=== PATIENT | female | born 1940 | race Caucasian/White ===

== ENCOUNTER 2016-11-17 15:01 | Emergency (ER) | payer MEDICARE, BC ==
--- NOTE | 2016-11-17 15:47 | UC ---
Complaint Female HPI - HPI Summary HPI Summary: 76 YEAR OLD FEMALE PRESENTS WITH COMPLAINS OF URINARY FREQUENCY,URGENCY AND BURNING. - History Of Current Complaint Stated Complaint: URINARY Time Seen by Provider: 11/17/16 15:46 Onset/Duration: Sudden Onset Timing: Constant Severity Initially: Moderate Severity Currently: Moderate Pain Scale Used: 0-10 Numeric - 7 - Allergies/Home Medications Allergies/Adverse Reactions: Allergies Allergy/AdvReac Type Severity Reaction Status Date / Time Penicillins Allergy Intermediate Hives Verified 11/17/16 15:56 environmental Allergy Eyes Uncoded 11/17/16 15:56 Itchy/Swollen/Red/Watery Home Medications: Home Medications Cholecalciferol [Vitamin D] 1,000 unit PO DAILY 11/17/16 [History Confirmed ] PMH/Surg Hx/FS Hx/Imm Hx Previously Healthy: Yes - Surgical History Surgical History: Yes Surgery Procedure, Year, and Place: HYSTERECTOMY, LEFT FOOT SURGERY , RIGHT TOTAL KNEE. TONSILLECTOMY - Family History Known Family History: Positive: Cardiac Disease, Hypertension, Diabetes - Social History Alcohol Use: Weekly Alcohol Amount: 7 Substance Use Type: None Smoking Status (MU): Never Smoked Tobacco - Immunization History Most Recent Influenza Vaccination: November 2014 Review of Systems Constitutional: Negative Skin: Negative Eyes: Negative ENT: Negative Respiratory: Negative Cardiovascular: Negative Gastrointestinal: Negative Genitourinary: Frequency, Urgency Motor: Negative Neurovascular: Negative Musculoskeletal: Negative Neurological: Negative Psychological: Negative All Other Systems Reviewed And Are Negative: Yes Physical Exam Triage Information Reviewed: Yes Vital Signs Reviewed: Yes Eye Exam: Normal ENT Exam: Normal Dental Exam: Normal Neck exam: Normal Neck: Positive: 1 Respiratory Exam: Normal Cardiovascular Exam: Normal Abdominal Exam: Normal Musculoskeletal Exam: Normal Neurological Exam: Normal Psychological Exam: Normal Skin Exam: Normal Complaint Female Dx - Differential Dx/Diagnosis Provider Diagnoses: UTI. URINARY FEQUENCY/URGENCY Discharge - Discharge Plan Condition: Stable Disposition: HOME Prescriptions: Ciprofloxacin TAB* [Cipro 500 MG TAB*] 500 mg PO BID #10 tab Patient Education Materials: Urinary Tract Infection in Women (ED) Referrals: Octavia Dorado MD [Primary Care Provider] -
[2016-11-17 15:56] VITALS: BP 143/53
== END 2016-11-17 16:13 | disposition home or self-care (01) ==
LOC: UCCORT 15:01
DX: N39.0 Urinary tract infection, site not specified (principal); B96.20 Unspecified Escherichia coli [E. coli] as the cause of diseases classified elsewhere; R39.15 Urgency of urination; Z90.710 Acquired absence of both cervix and uterus; Z88.0 Allergy status to penicillin
CPT/HCPCS: 81003; 87077; 87086; 87186; 99212; G0463

== ENCOUNTER 2018-06-25 10:52 | Emergency (ER) | payer MEDICARE, BC ==
[2018-06-25 11:29] VITALS: BP 131/65
--- NOTE | 2018-06-25 11:47 | UC ---
Throat Pain/Nasal Jose Eduardo HPI - HPI Summary HPI Summary: sinus pain and pressure x 10 days nasal congestion , pnd, yellow green nasal discharge, no fever, no sore throat + productive cough with yellow sputum no sob , no chest pain - History of Current Complaint Chief Complaint: UCRespiratory Stated Complaint: CHEST/NASAL CONGESTION COUGH Time Seen by Provider: 06/25/18 11:19 Hx Obtained From: Patient Hx Last Menstrual Period: n/a Onset/Duration: Gradual Onset, Lasting Days - 10, Still Present Severity: Severe Pain Intensity: 0 Cough: Productive Associated Signs & Symptoms: Positive: Sinus Discomfort, Nasal Discharge. Negative: Wheezing, Hoarseness, Fever, Vomiting, Rash - Allergies/Home Medications Allergies/Adverse Reactions: Allergies Allergy/AdvReac Type Severity Reaction Status Date / Time Penicillins Allergy Hives Verified 06/25/18 11:22 Home Medications: Home Medications Calcium Carb/D3/Magnesium/Zinc [Fuentes Mag Zinc + D3 Tablet] 1 each PO DAILY [History Confirmed 06/25/18] Calcium Carb/Vit D3/Minerals [Calcium 600+D Plus [place]] 1 tab PO BID 06/25/18 [ History Confirmed 06/25/18] Cholecalciferol TAB* [Vitamin D TAB*] 2,000 units PO DAILY 06/25/18 [History Confirmed 06/25/18] Ibandronate TAB(NF) [Boniva(NF)] 150 mg PO Q30D 06/25/18 [History Confirmed 09/06] Pregabalin CAP(*) [Lyrica CAP(*)] 50 mg PO BEDTIME 06/25/18 [History Confirmed 06/25/18] PMH/Surg Hx/FS Hx/Imm Hx - Additional Past Medical History Additional PMH: Allergies, Arthritis, Dyslipidemia cdif Cardiovascular History: Hypertension - Surgical History Surgical History: Yes Surgery Procedure, Year, and Place: HYSTERECTOMY, LEFT FOOT SURGERY , RIGHT TOTAL KNEE. TONSILLECTOMY - Family History Known Family History: Positive: Cardiac Disease, Hypertension, Diabetes - Social History Alcohol Use: Weekly Alcohol Amount: 7 Substance Use Type: None Smoking Status (MU): Never Smoked Tobacco - Immunization History Most Recent Influenza Vaccination: November 2014 Review of Systems All Other Systems Reviewed And Are Negative: Yes Constitutional: Positive: Negative Skin: Positive: Negative Eyes: Positive: Negative ENT: Positive: Nasal Discharge, Sinus Congestion, Sinus Pain/Tenderness Respiratory: Positive: Cough Cardiovascular: Positive: Negative Is Patient Immunocompromised?: No Physical Exam Triage Information Reviewed: Yes Appearance: Well-Appearing, No Pain Distress, Well-Nourished Vital Signs: Initial Vital Signs Temp 97.9 F 06/25/18 11:18 Pulse 95 06/25/18 11:18 Resp 18 06/25/18 11:18 BP 131/65 06/25/18 11:18 Pulse Ox 98 06/25/18 11:18 Vital Signs Reviewed: Yes Eye Exam: Normal Eyes: Positive: Conjunctiva Clear ENT: Positive: Normal ENT inspection, Hearing grossly normal, Pharynx normal, Nasal congestion, Nasal drainage, TMs normal, Sinus tenderness. Negative: Pharyngeal erythema, TM bulging, TM dull, TM red, Tonsillar swelling, Tonsillar exudate Neck: Positive: Supple, Nontender, No Lymphadenopathy Respiratory: Positive: Chest non-tender, Lungs clear, Normal breath sounds Cardiovascular: Positive: RRR, No Murmur, Pulses Normal Skin Exam: Normal Throat Pain/Nasal Course/Dx - Differential Dx/Diagnosis Provider Diagnosis: Sinusitis Discharge - Sign-Out/Discharge Documenting (check all that apply): Patient Departure All imaging exams completed and their final reports reviewed: No Studies - Discharge Plan Condition: Stable Disposition: HOME Prescriptions: DOXYcycline CAP(*) [DOXYcycline 100MG CAP(*)] 100 mg PO BID #14 cap Patient Education Materials: Probiotic (By mouth), Sinusitis (ED) Referrals: Octavia Dorado MD [Primary Care Provider] - 7 Days - Billing Disposition and Condition Condition: STABLE Disposition: Home
== END 2018-06-25 11:49 | disposition home or self-care (01) ==
LOC: UCCORT 10:52
DX: J32.9 Chronic sinusitis, unspecified (principal); R05 Cough; M19.90 Unspecified osteoarthritis, unspecified site; E78.5 Hyperlipidemia, unspecified; B96.89 Other specified bacterial agents as the cause of diseases classified elsewhere; I10 Essential (primary) hypertension; Z88.0 Allergy status to penicillin
CPT/HCPCS: 99212; G0463